=== PATIENT | female | born 1980 | race Caucasian/White ===

== ENCOUNTER 2025-05-01 08:01 | Emergency (ER) | payer OTHER, SELFPAY ==
[2025-05-01] VITALS (7 sets, daily range): BP systolic 126–130; BP diastolic 85–90; PULSE 74–84; RESP 12–18; TEMP 37; O2SAT 100
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
--- OUTSIDE RECORDS SUMMARY | 2025-05-01 08:13 | XMS_ITS | Encounter Summary ---
Author Organization [facility] Address [address] [place] [address] Care Team Providers Care Motor Coach Operator Name Role Phone Joe Reza MD Primary Care Provider [phone] Encounter Details Date Type Department Care Team (Late st Contact Info) Description 03/19/2020 Lab Requisition [facility] [address] [place] [id number] Herminia Graham MD [address] [facility] [address] [place] [address] Social History Tobacco Use Types Packs/Day Years Used Date Smoking Tobacco: Never Assessed Comments Unknown Sex and Gender Information Value Date Recorded Sex Assigned at Not on file 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 Gender Identity Not on file Sexual Orientation Not on file documented as of this encounter Plan of Treatment Not on file documented as of this encounter Procedures Procedure Name Priority Date/Time Associated Diagnosis Comments DERMATOPATHOLOGY Routine 03/18/2020 12:0 0 AM CDT documented in this encounter Results * DERMATOPATHOLOGY (03/18/2020 12:00 AM CDT) Case Report Dermatopathology Report Case: [id number] Authorizing Provider: Herminia Graham MD Collected: 03/18/2020 12:00 AM Ordering Location: [facility] Care DermPath Lab Received: 03/19/2020 03:02 PM Pathologist: Janelle Escobar MD Specimen: Skin, right eyelid 0 3:02 PM CDT DERMATOPATHOLOGY LABORATORY Final Diagnosis Specimen A. SKIN, right eyelid: BASAL CELL CARCINOMA, NODULAR TYPE (C44.1121) 0 3:02 PM CDT DERMATOPATHOLOGY LABORATORY at 1502 CDT Clinical History R/O angiokeratoma vs BCC 0 3:02 PM CDT DERMATOPATHOLOGY LABORATORY Gross Description Specimen A: Received is one formalin filled container labeled with the patient's name and designated right eyelid. The specimen consists of a shave biopsy measuring 5x4x3 mm. Jar 0. 0 3:02 PM CDT DERMATOPATHOLOGY LABORATORY Microscopic Description Specimen A. SKIN, right eyelid: Within the dermis there are aggregates of basaloid cells with a high nuclear to cytoplasmic ratio and peripheral palisading. 0 3:02 PM CDT DERMATOPATHOLOGY LABORATORY Disclaimer An external and internal positive and negative controls are appropriate for the histochemical, immunohistochemical and immunofluorescence stain(s) in this case (if any), except where stated explicitly. The performance characteristics of the stain(s) cited in this report were developed and its performance characteristic determined by the Dermatopathology Laboratory at [facility], directed by Dr. Angelica Ann. These tests need not be, and therefore are not, approved by the [place] Food and Drug Administration. The tests are used for clinical purposes. Billing Codes Specimen Charges Stain Charges 98051 1 0 3:02 PM CDT DERMATOPATHOLOGY LABORATORY Embedded Images 0 3:02 PM CDT DERMATOPATHOLOGY LABORATORY Pathology/Cytolog y TISSUE SPECIMEN FROM SKIN / Unknown 03/18/2020 03/19/2020 3:02 PM CDT us Herminia Graham MD LAB - PATHOLOGY/CYTOLOGY ORD ERABLES Final Result DERMATOPATHOLOGY LABORATORY [facility] - Department of Dermatology [facility] [address] [place] [address], [address] [place] [address], [facility] [phone] documented in this encounter Visit Diagnoses Not on filedocumented in this encounter Care Teams Motor Coach Operator Relationship Specialty Start Date End Date Joe Reza MD [address] [place] [id number] PCP - General 02/13/11 documented as of this encounter
--- OUTSIDE RECORDS SUMMARY | 2025-05-01 08:13 | XMS_ITS | Clinical Summary ---
Author Organization [facility] Address [address] [place] [address] Care Team Providers Care Repairer Welding Systems [employer] Equipment Name Role Phone Joe Reza MD Primary Care Provider [phone] Source Comments [facility],non-owned Affiliates and Associated Physician Practices is amultiple site organization consisting of ambulatory clinics and hospital sitesin [place], [place], [place] and [place]. This disclosure is being madepursuant to the Care Everywhere program and may not contain all information available regarding this patient. Last updated 18.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 Gender Identity Not on file Sexual Orientation Not on file Plan of Treatment Health Maintenance Due Date Last Done Comments COLOGUARD (AGES 45-75) - COL ON CA SCREENING 1978 COLON MONITORING 1978 COLONOSCOPY - COLON CA SCREENING 1978 CT COLONOGRAPHY - COLON CA SCREENING 1978 Colorectal Cancer Screening 1978 FIT - COLON CA SCREENING 1978 FLEX SIG - COLON CA SCREENING 1978 LIPID TESTING 1978 MAMMOGRAM 1978 HIV SCREENING 1993 HEPATITIS C SCREENING 04/20/1996 DTAP/TDAP/TD VACCINES (1 - Tdap) 1997 HEPATITIS B VACCINE (1 of 3 - 19+ 3-dose series) 1997 DEPRESSION SCREENING 07/19/2024 COVID-19 VACCINE (2023-2 5 season) 2025 INFLUENZA VACCINE (#1) 2025 ZOSTER VACCINE (1 of 2) 2028 HIB VACCINE Aged Out No longer eligi ble based on patient's age to complete this topic HPV VACCINE Aged Out No longer eligi ble based on patient's age to complete this topic MENINGOCOCCAL (Group B) VACC INE SHARED DECISION-MAKING Aged Out No longer eligibl e based on patient's age to complete this topic MENINGOCOCCAL GROUPS A/C/Y/W VACCINE Aged Out No longer eligible b ased on patient's age to complete this topic PNEUMOCOCCAL VACCINE Aged Out No long er eligible based on patient's age to complete this topic Insurance Care Teams Repairer Welding Systems [employer] Equipment Relationship Specialty Start Date End Date Joe Reza MD [address] [place] [address] PCP - General 02/13/11
--- OUTSIDE RECORDS SUMMARY | 2025-05-01 08:13 | XMS_ITS | Clinical Summary ---
Author Organization [facility] Address [address] [place] [address] Care Team Providers Care Photovoltaic Technician Name Role Phone No, Physician Unavailable Luís Butler DO Primary Care Provider [phone] Allergies Active Allergy Reactions Criticality Noted Date Comments Codeine Hives,Nausea & Vomiting Medium Erythromycin Nausea & Vomiting Low Hydrocodone Hives Medium 02/25/2022 Medications albuterol HFA (PROVENTIL HFA,VENTOLIN HFA) 90 mcg/actuation inhaler inhale 2 puff by inhalation route every 4 - 6 hours as needed 0 03/17/20 11 Active Additional Information Patient taking differently:90 mcginhalation As needed, Indications: Acute Asthma Attack, Informant: Self, Reported on 04/19/2025 cetirizine (ZyrTEC) 10 mg tablet Take 10 mg by mouth daily As needed for allergies Active cholecalcifero l (VITAMIN D-3) 5,000 unit capsule Take 5,000 Units by mouth daily Active ocrelizumab, OCREVUS ZUNOVO, (Ocrevus Zunovo) 920 mg-23,000 unit/23 mL solutionIndica tions:relapsin g form of multiple sclerosis Inject 23 mL (920 mg total) under the skin every 6 (six) months for 10 minutes SUBQ in the abdomen; Observe patient for 15 minutes post injection for all subsequent doses; HOME INFUSION 23 mL 12/27/19 25 Active methocarbamoL (ROBAXIN) 750 mg tablet Take 1 tablet (750 mg total) by mouth 3 (three) times a day as needed for muscle spasms 20 tablet 04/12/20 25 Active Eliquis 5 mg tabletIndicati ons:Multiple sclerosis,Immu nosuppression due to drug therapy,High risk medication use,Medication monitoring encounter,Abno rmal MRI,Other fatigue,Dysest hesia of multiple sites Take 1 tablet (5 mg total) by mouth 2 (two) times a day 60 tablet 04/19/20 25 025 Active Eliquis 5 mg tablet 1 tablet (5 mg total) 04/10/20 25 025 Discontin ued(Reord er) Active Problems Problem Noted Date Diagnosed Date Immunosuppression due to drug therapy 04/15/2025 High risk medication use 04/15/2025 Medication monitoring encounter 04/15/2025 Abnormal MRI 04/15/2025 Dysesthesia of multiple sites 04/15/2025 Basal cell carcinoma of right lower eyelid 04/04 Overview (04/04/2020): Added automatically from request for surgery [id number] Other fatigue 01/03/2020 Muscle spasm of left lower extremity 01/03/2020 Paresthesias 01/03/2020 Mild intermittent asthma without complication Multiple sclerosis 12/02/2013 Overview (10/23/2016): Multiple sclerosis, relapsing-remitting Encounters Date Type Department Care Team Description 04/19/2025 4:15 PM CDT Lab [facility] ([facility]) [address] [place] [address] Multiple sclerosis; Immunosuppression due to drug therapy; High risk medication use; Medication monitoring encounter; Abnormal MRI; Other fatigue; Dysesthesia of multiple sites 04/19/2025 2:30 PM CDT Office Visit [facility] Multiple Sclerosis [facility] Medicine [address]th [place] [address] Carol Hendricks, FIRST MATE Multiple sclerosis (Primary Dx); Immunosuppression due to drug therapy; High risk medication use; Medication monitoring encounter; Abnormal MRI; Other fatigue; Dysesthesia of multiple sites 04/19/2025 Results Follow-Up [facility] Multiple Sclerosis [address] [facility] 7th [place] [address] Carol Hendricks, FIRST MATE Immune competence 04/12/2025 7:30 PM CDT - 04/13/2025 1:58 AM CDT Emergency [facility] Emergency Department [address] [facility] [place] [address] Sanya Ortez MD PhD Left leg pain (Primary Dx) Discharge Disposition: Discharge to home or self care from Last 3 Months Immunizations Immunization Administration Dates Next Due Influenza, Quadrivalent, Renetta l Culture-based MDCK, Preservative Free, Antibiotic Free, Intramuscular 05/12/2018 Influenza, Quadrivalent, Rec ombinant, Egg Free, Preservative Free, Intramuscular 04/18/2020 Influenza, Quadrivalent, Spl it, Preservative Free, Intramuscular 04/08/2017 Influenza, Split 03/19/2017 Moderna SARS-CoV-2 Monovalent Vaccination (12+ Y RS) 11/14/2021 Pneumococcal Polysaccharide PPV23 04/18/2020 Tdap 07/12/2015 Surgical History Surgery Date Site/Laterality Comments TONSILLECTOMY COLONOSCOPY Medical History Medical History Date Comments Hx Other Medical tonsillectomy Asthma Asthma Hx Other Medical Vit D deficienc y Hx Other Medical Concussion; Com ments: MJT 09/12/2014 - Basal cell carcinoma (BCC) Multiple sclerosis Motion sickness Family History Medical History Relation Name Comments Transient ischemic attack Maternal Grandfather Multiple sclerosis Maternal Grandmother M ultiple sclerosis; Evidently, due to complications from MS Multiple sclerosis Mother Multiple sclerosis; Relation Name Status Comments Maternal Grandfather Maternal Grandmother Alive Mother Social History Tobacco Use Types Packs/Day Years Used Date Smoking Tobacco: Never Smokeless Tobacco: Never Alcohol Use Standard Drinks/Week Comments Yes 2 (1 standard drink = 0.6 oz pur e alcohol) Personal Safety Answer Date Recorded Have you ever been in or are you currently in a harmful physical or emotional relationship or is someone making you feel afraid or unsafe? 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 Gender Identity Not on file Sexual Orientation Lesbian 04/02/2020 8: 04 AM CDT Obstetrics History Last Filed Vital Signs Vital Sign Reading Time Taken Comments Blood Pressure 123/84 04/19/2025 2:15 PM CDT Pulse 89 04/19/2025 2:15 PM CDT Temperature 36.9 C (98.5 F) 04/12/2025 2:59 PM CDT Respiratory Rate 18 04/12/2025 11:1 0 PM CDT Oxygen Saturation 96% 04/19/2025 2:15 PM CDT Inhaled Oxygen Concentration - - Weight 123.2 kg (271 lb 9.6 oz) 04/19/2025 2:15 PM CDT Height 165.1 cm (5' 5) 04/19/2025 2:15 PM CDT Body Mass Index 45.2 04/19/2025 2:15 PM CDT Plan of Treatment Health Maintenance Due Date Last Done Comments Breast Cancer Screening-Mammogram 1978 Cervical Cancer Screening 1978 Colon Cancer Screening-Colonoscopy 1978 Depression Screening 1978 Regular Well Visit/Exam 18-64 1996 Zoster Vaccine (1 of 2) 1997 Pneumococcal vaccine <65 (2 of 2 - PCV) 04/18/2021 04/18/2020 Covid-19 Vaccine (6 - 2024-2 6 season) 2025 06/04/2023, 11/14/2021, 03/14/2021, Additional history exists Influenza Vaccine (#1) 2025 , 04/18/2020, 05/12/2018, Additional history exists DTaP/Tdap/Td Vaccine (2 - Td or Tdap) 07/12/2025 07/12/2015 Hepatitis B Screening Completed 01/03/2020 Hepatitis C Screening Completed 01/03/2020 Procedures Procedure Name Priority Date/Time Associated Diagnosis Comments IMMUNE COMPETENCE Routine 04/19/2025 3:2 5 PM CDT Multiple sclerosis Immunosuppression due to drug therapy High risk medication use Medication monitoring encounter Abnormal MRI Other fatigue Dysesthesia of multiple sites IGG Routine 04/19/2025 3:25 PM CDT Multiple sclerosis Immunosuppression due to drug therapy High risk medication use Medication monitoring encounter Abnormal MRI Other fatigue Dysesthesia of multiple sites IGA Routine 04/19/2025 3:25 PM CDT Multiple sclerosis Immunosuppression due to drug therapy High risk medication use Medication monitoring encounter Abnormal MRI Other fatigue Dysesthesia of multiple sites IGM Routine 04/19/2025 3:25 PM CDT Multiple sclerosis Immunosuppression due to drug therapy High risk medication use Medication monitoring encounter Abnormal MRI Other fatigue Dysesthesia of multiple sites APTT STAT 04/12/2025 8:37 PM CDT PROTIME-INR STAT 04/12/2025 8:37 PM CDT TROPONIN I HIGH-SENSITIVITY 4-HOUR Timed 04/12/2025 8:37 PM CDT EGFR STAT 04/12/2025 4:16 PM CDT DIFFERENTIAL AUTO Routine 04/12/2025 4:1 6 PM CDT TROPONIN I HIGH-SENSITIVITY SERIES (BASELINE, 2HR, 4HR, 6HR) STAT 04/12/2025 4:16 PM CDT COMPREHENSIVE METABOLIC PANEL STAT 04/12/2025 4:16 PM CDT D-DIMER, QUANTITATIVE STAT 04/12/2025 4:16 PM CDT CBC WITH AUTO DIFFERENTIAL Routine 04/12/2025 4:16 PM CDT HEPATITIS PANEL, ACUTE Routine 0 9:00 AM CDT from Last 3 Months or Most Recently Relevant to Health Maintenance Results * (ABNORMAL) Immune competence (04/19/2025 3:25 PM CDT) CD3 pct 90(H) 60 - 88 % CD3 Absolute 1,668 661 - 1,963 cells/mcL [facility] CD4 pct 78(H) 31 - 64 % [facility] CD4 Absolute 1,474(H) 365 - 1,294 cells/mcL [facility] CD8 pct 14 12 - 40 % [facility] CD8 Absolute 273 187 - 781 cells/mcL [facility] CD19 pct 0(L) 6 - 25 % [facility] CD19 Absolute <25(L) 86 - 488 cells/mcL [facility] Comment:Verified [id number] pct 9 5 - 25 % [facility] [id number] Absolute 154 76 - 467 cells/mcL [facility] CD4/CD8 ratio 5.6 [facility] Blood 04/19/2025 3:25 PM CDT 04/19/2025 4:14 PM CDT Carol Hendricks FIRST MATE LAB BLOOD ORDERABLES Final Res ult Performing Organization Address [facility] Co de Phone Number [facility] [email or web address] [address] * IgA (04/19/2025 3:25 PM CDT) Immunoglobulin A 194 70 - 400 mg/dL Blood 04/19/2025 3:25 PM CDT 04/19/2025 4:14 PM CDT Carol Hendricks FIRST MATE LAB BLOOD ORDERABLES Final Res ult Performing Organization Address [facility] Co de Phone Number [facility] [email or web address] [address] * IgM (04/19/2025 3:25 PM CDT) Immunoglobulin M 45 40 - 230 mg/dL Blood 04/19/2025 3:25 PM CDT 04/19/2025 4:14 PM CDT Carol Hendricks FIRST MATE LAB BLOOD ORDERABLES Final Res ult Performing Organization Address City/[facility]/ZIP Co de Phone Number [facility] [place] [address] * IgG (04/19/2025 3:25 PM CDT) Pathologist [facility] Immunoglobulin G 734 700 - 1,600 mg/dL Blood 04/19/2025 3:25 PM CDT 04/19/2025 4:14 PM CDT Carol Hendricks FIRST MATE LAB BLOOD ORDERABLES Final Res ult Performing Organization Address [facility] Co de Phone Number [facility] [email or web address] [address] * Troponin I high-sensitivity 4-hour (04/12/2025 8:37 PM CDT) [facility] Trop I hs <4 <=17 ng/L Comment: Interpretive Data For further hscTnI resources including the diagnostic algorithm and an aid in interpretation, copy and paste this link: https://bjhlab.testcatalog.org/show/[email or web address] Current Interpretive Data last revised 2020. Trop I hs delta 0 ng/L [facility] Trop I hs interp Insignificant [facility] Blood 04/12/2025 8:37 PM CDT 04/12/2025 8:50 PM CDT Rahul Barroso MD LAB BLOOD ORDERABLES Lina l Result Performing Organization Address [facility] de Phone Number [facility] [email or web address] [address] * aPTT (04/12/2025 8:37 PM CDT) Pathologist [facility] aPTT 31 26 - 38 sec Comment: Interpretive Data Heparin therapeutic range: 66.0 - 100.0 seconds. Range based on correlation with therapeutic heparin activity range of 0.3 - 0.7 Units/mL. Current interpretive data was last revised on 2023. Blood 04/12/2025 8:37 PM CDT 04/12/2025 8:53 PM CDT Jackie Mondragon MD LAB BLOOD ORDERABLES Fin al Result Performing Organization Address [facility] de Phone Number [facility] [place] [address] * Protime-INR (04/12/2025 8:37 PM CDT) PT 13.5 10.2 - 13.5 sec INR 1.20 0.90 - 1.20 [facility] Comment: Interpretive data Oral anticoagulant therapeutic ranges: Venous thromboembolism prophylaxis or treatment: 2.0-3.0 CARDIOLOGY Standard range: 2.0-3.0 High-intensity range: 2.5-3.5 Refer to indication-specific guidelines for appropriate target ranges for prosthetic heart valve replacement. Current interpretive data was last revised on 2019. Blood 04/12/2025 8:37 PM CDT 04/12/2025 8:53 PM CDT Jackie Mondragon MD LAB BLOOD ORDERABLES Fin al Result Performing Organization Address [facility] de Phone Number [facility] [place] [address] * Troponin I high-sensitivity series (baseline, 2hr, 4hr, 6hr) (04/12/2025 4:16 PM CDT) Trop I hs <4 <=17 ng/L Comment: Interpretive Data For further hscTnI resources including the diagnostic algorithm and an aid in interpretation, copy and paste this link: https://bjhlab.testcatalog.org/show/hsTrop-[email or web address] Current Interpretive Data last revised 2020. Blood 04/12/2025 4:16 PM CDT 04/12/2025 4:55 PM CDT us Sanya Ortez MD PhD LAB BLOOD ORDERABLE S Final Result Performing Organization Address [facility] de Phone Number [facility] Department [place] [address] * eGFR (04/12/2025 4:16 PM CDT) Pathologist [facility] eGFR >90 >=60 mL/min/1. 73 m2 Comment: Interpretive Data Reference Interval Normal >/= 90 mL/min/1.73m2 Mildly decreased* 60 - 89 mL/min/1.73m2 Mildly to moderately decreased 45 - 59 mL/min/1.73m2 Moderately to severely decreased 30 - 44 mL/min/1.73m2 Severely decreased 15 - 29 mL/min/1.73m2 Kidney Failure < 15 mL/min/1.73m2 *Relative to young adult level Estimated glomerular filtration rate is determined by the 2020 CKD-EPI equation recommended by the National Kidney Foundation (A Unifying Approach to GFR Estimation: Recommendations of the NKF-ASK Task Force on Reassessing the Inclusion of Race in Diagnosing Kidney Disease, JASN 2020). The CKD-EPI equation should not be used for patients with unstable renal function and has not been validated in children and those over 70. Current interpretive data was last reviewed 2021. Blood 04/12/2025 4:16 PM CDT 04/12/2025 4:55 PM CDT us Sanya Ortez MD PhD LAB BLOOD ORDERABLE S Final Result [facility] B[facility] Department [place] [address] * (ABNORMAL) Differential, auto (04/12/2025 4:16 PM CDT) Pathologist [facility] Neutrophil abs 6.82(H) 1.50 - 6.50 K/cumm Imm gran abs 0.03 0.00 - 0.10 K/cumm [facility] Lymphocyte abs 2.27 0.80 - 3.30 K/cumm [facility] Monocyte abs 0.89(H) 0.20 - 0.80 K/cumm [facility] Eosinophil abs 0.16 0.00 - 0.50 K/cumm [facility] Basophil abs 0.06 0.00 - 0.10 K/cumm [facility] Neutrophil pct 66.6 % [facility] Comment: Interpretive Data Percent cell count reference ranges are not reported, since discordance with absolute values may lead to misinterpretation of CBC data. Current Interpretive Data was last revised on 2017. Imm gran pct 0.3 % [facility] Comment: Interpretive Data Percent cell count reference ranges are not reported, since discordance with absolute values may lead to misinterpretation of CBC data. Current Interpretive Data was last revised on 2017. Lymphocyte pct 22.2 % [facility] Comment: Interpretive Data Percent cell count reference ranges are not reported, since discordance with absolute values may lead to misinterpretation of CBC data. Current Interpretive Data was last revised on 2017. Monocyte pct 8.7 % [facility] Comment: Interpretive Data Percent cell count reference ranges are not reported, since discordance with absolute values may lead to misinterpretation of CBC data. Current Interpretive Data was last revised on 2017. Eosinophil pct 1.6 % [facility] Comment: Interpretive Data Percent cell count reference ranges are not reported, since discordance with absolute values may lead to misinterpretation of CBC data. Current Interpretive Data was last revised on 2017. Basophil pct 0.6 % [facility] Comment: Interpretive Data Percent cell count reference ranges are not reported, since discordance with absolute values may lead to misinterpretation of CBC data. Current Interpretive Data was last revised on 2017. Blood 04/12/2025 4:16 PM CDT 04/12/2025 4:55 PM CDT us Sanya Ortez MD PhD LAB BLOOD ORDERABLE S Final Result SAMMY BLEVINS [facility] Department [place] [address] * (ABNORMAL) CBC with auto differential (04/12/2025 4:16 PM CDT) WBC 10.23(H) 3.80 - 9.90 K/cumm Hgb 12.5 11.9 - 15.5 g/dL [facility] Hct 39.5 35.6 - 45.5 % [facility] Plt 362 150 - 400 K/cumm [facility] MPV 9.8 9.1 - 12.3 fL [facility] RBC 3.97 3.90 - 5.20 M/cumm [facility] MCV 99.5(H) 81.3 - 96.4 fL [facility] MCH 31.5 27.1 - 33.3 pg [facility] MCHC 31.6(L) 32.3 - 35.7 g/dL [facility] RDW CV 13.0 11.1 - 14.9 % [facility] RDW SD 47.4 35.7 - 48.1 fL [facility] NRBC abs 0.00 0.00 - 0.01 K/cumm [facility] Blood 04/12/2025 4:16 PM CDT 04/12/2025 4:55 PM CDT us Sanya Ortez MD PhD LAB BLOOD ORDERABLE S Final Result [facility] Department [place] [address] * (ABNORMAL) D-dimer, quantitative (04/12/2025 4:16 PM CDT) D-Dimer 1,149(H) <=499 ng/mL FEU Comment: Interpretive data FDA approved the D-dimer, in conjunction with a low or moderate pretest probability score, to exclude venous thromboembolic events (VTE) (PE and DVT) in outpatients when the D-dimer result is < 500 ng/ml FEU. Evidence supports using an age-adjusted D-dimer cut-off for outpatients older than 50 (age x 10) to improve specificity without sacrificing sensitivity. Example: age 68, VTE cut-off 680 ng/ml FEU. References; Rima HT et al. Brit Med J. 2013;346:f2492. Leatha et al. Annals Int Med. 2015;163:701-11. Current interpretive data was last revised on 2019. Blood 04/12/2025 4:16 PM CDT 04/12/2025 4:57 PM CDT us Sanya Ortez MD PhD LAB BLOOD ORDERABLE S Final Result [facility] Department [place] [address] * Comprehensive metabolic panel (04/12/2025 4:16 PM CDT) Sodium 141 135 - 145 mmol/L Potassium, pl 4.5 3.3 - 4.9 mmol/L [facility] Chloride 108 97 - 110 mmol/L [facility] CO2 23 22 - 32 mmol/L [facility] Anion gap 10 2 - 15 mmol/L [facility] BUN 8 6 - 25 mg/dL [facility] Creatinine 0.72 0.60 - 1.10 mg/dL [facility] Glucose 85 70 - 199 mg/dL [facility] Comment: Interpretive Data Fasting glucose >/= 126 mg/dl is diagnostic for diabetes. Fasting is defined as no caloric intake for at least 8 hours. Fasting glucose between 100 mg/dl to 125 mg/dl is diagnostic of prediabetes. In a patient with classic symptoms of hyperglycemia or hyperglycemic crisis, a random glucose >/= 200 mg/dl is diagnostic for diabetes. In the absence of unequivocal hyperglycemia, results should be confirmed by repeat testing. The classification and Diagnosis of Diabetes Diabetes Care 202; 46: S19-S40. Current interpretive data was last revised 2022. Calcium 8.7 8.5 - 10.3 mg/dL [facility] Bilirubin, total 0.2 0.1 - 1.2 mg/dL [facility] Protein, pl 6.7 6.5 - 8.5 g/dL [facility] Albumin 3.6 3.5 - 5.0 g/dL [facility] Alk phos 68 40 - 130 Units/L [facility] ALT 26 7 - 45 Units/L [facility] AST 25 10 - 45 Units/L [facility] Blood 04/12/2025 4:16 PM CDT 04/12/2025 4:55 PM CDT us Sanya Ortez MD PhD LAB BLOOD ORDERABLE S Final Result Performing Organization Address [facility] Co de Phone Number [facility] Department [place] [address] * Hepatitis panel, acute (01/03/2020 9:00 AM CDT) Hep A IgM Nonreactive Nonreactive [facility] Comment: Interpretive Data: If Hep A IgM Ab is reported as Equivocal, a new sample should be drawn in two weeks for testing. Current interpretive data was last revised on 19. Hep B core IgM Nonreactive Nonreactive [facility] Comment: Interpretive Data If HepB Core IgM Ab is reported as Equivocal, a new sample should be drawn in two weeks for testing. Current interpretive data was last revised on 19. Hep C Ab Nonreactive Nonreactive [facility] Comment:Antibodies to HCV no t detected. Does NOT exclude the possibility of recent exposure to HCV. HepBsAg Nonreactive Nonreactive [facility] Blood specimen (specimen) 01/03/2020 9:00 AM CDT 01/03/2020 10:39 AM CDT us Dominik Loza MD LAB MICROBIOLOGY - GENERAL ORDERABLES Edited Result - Final Performing Organization Address [facility] Co de Phone Number [facility] Department [place] [address] from Last 3 Months or Most Recently Relevant to Health Maintenance Insurance [employer] ACCESS CHOICE Member Subscriber Plan / Payer (Ef fective 2016-Present) Name:Bryce Wong Relation to Subscriber:Self Name:DamirsaschaMatiasBryce R Payer ID:[id number] ([facility]) Type:[employer] Address: [address] CHOICE PLUS [employer] ACCESS OOS Care Teams Photovoltaic Technician Relationship Specialty Start Date End Date Luís Butler DO [address] [facility] [address] [place] [address] PCP - General Family Medicine 04/19/25 No, Physician 04/24/24
--- OUTSIDE RECORDS SUMMARY | 2025-05-01 08:13 | XMS_ITS ---
Author Organization [facility] Address [address] [place] [address] Care Team Providers Care Managing Consultant Clinical Professor Name Role Phone No, Physician Unavailable Luís Butler DO Primary Care Provider [phone] Active Problems Problem Noted Date Diagnosed Date Immunosuppression due to drug therapy 04/15/2025 High risk medication use 04/15/2025 Medication monitoring encounter 04/15/2025 Abnormal MRI 04/15/2025 Dysesthesia of multiple sites 04/15/2025 Basal cell carcinoma of right lower eyelid 04/04 Overview (04/04/2020): Added automatically from request for surgery [id number] Other fatigue 01/03/2020 Muscle spasm of left lower extremity 01/03/2020 Paresthesias 01/03/2020 Mild intermittent asthma without complication Multiple sclerosis 12/02/2013 Overview (10/23/2016): Multiple sclerosis, relapsing-remitting Current Treatment and Therapy Plans No current plan information found. Past Treatment and Therapy Plans
--- OUTSIDE RECORDS SUMMARY | 2025-05-01 08:13 | XMS_ITS | Encounter Summary ---
Author Organization [facility] Healthcare Address [address] [place] [address] Care Team Providers Care Director Of Personnel Name Role Phone No, Physician Primary Care Provider Unknown, Notinfile Primary Care Provider Unavail able No, Physician Unavailable Luís Butler DO Primary Care Provider [phone] Encounter Details Date Type Department Care Team (Late st Contact Info) Description 07/03/2020 Telephone [facility] Radiology [address] [place] [address] Dominik Loza MD [address] [address] [place] [address] Social History Tobacco Use Types Packs/Day Years Used Date Smoking Tobacco: Never Smokeless Tobacco: Never Alcohol Use Standard Drinks/Week Comments Yes 2 (1 standard drink = 0.6 oz pur e alcohol) Comments No Sex and Gender Information Value Date Recorded Sex Assigned at Not on file 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
--- OUTSIDE RECORDS SUMMARY | 2025-05-01 08:13 | XMS_ITS | Encounter Summary ---
Author Organization [facility] Address [address] [place] [address] Phone Care Team Providers Care Body Repairer Name Role Phone No, Physician Unavailable Luís Butler DO Primary Care Provider [phone] Encounter Details Date Type Department Care Team (Late st Contact Info) Description 04/19/2025 Results Follow-Up [facility] Multiple Sclerosis [address] [facility] Advanced Medicine 7th [place] [address] Carol Hendricks, SECURITY AND COMPLIANCE ANALYST [address] [place] [address] Immune competence Social History Tobacco Use Types Packs/Day Years [...] on file 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
--- OUTSIDE RECORDS SUMMARY | 2025-05-01 08:14 | XMS_ITS | Encounter Summary ---
Author Organization [facility] Address [address] [place] [address] Phone Care Team Providers Care Ict Quality Assurance Engineer Name Role Phone No, Physician Primary Care Provider [phone] Unknown, Notinfile Primary Care Provider Unavail able No, Physician Unavailable Luís Butler DO Primary Care Provider [phone] Reason for Referral * Diagnostic Imaging (Routine) - Closed Specialty Diagnoses / Procedures Referred By Contac t Referred To Contact Radiology Diagnoses MS (multiple sclerosis) Procedures MRI Cervical Spine W WO Contrast Dominik Loza MD [address] [place] [address] Phone: tel: fax: [facility] [address] [place] [address] Referral ID Status Reason Start Date Expiration Date Visits Re quested Visits Authorized [id number] Closed 06/21/2020 08/05/2020 1 1 * Diagnostic Imaging (Routine) - Closed Specialty Diagnoses / Procedures Referred By Contjose celaya Referred To Contact Radiology Diagnoses MS (multiple sclerosis) Procedures MRI MS Brain 3T Protocol W WO Contrast Dominik Loza MD [address] [place] [address] Phone: tel: fax: [facility] [address] [place] [address] Referral ID Status Reason Start Date Expiration Date Visits Re quested Visits Authorized [id number] Closed 06/21/2020 08/05/2020 1 1 Encounter Details Date Type Department Care Team (Late st Contact Info) Description 05/01/2020 Imaging Exam [facility] Multiple Sclerosis [address] [place] [id number] Dominik Loza MD [address] [facility] [address] [place] [address] MS (multiple sclerosis) ([facility]) (Primary Dx) Social History Tobacco Use Types Packs/Day Years Used Date Smoking Tobacco: Never Smokeless Tobacco: Never Alcohol Use Standard Drinks/Week Comments Yes 2 (1 standard drink = 0.6 oz pur e alcohol) Comments No Sex and Gender Information Value Date Recorded Sex Assigned at Not on file Legal Sex Female 11:53 AM MONKEY KEEPER Gender Identity Not on file Sexual Orientation Lesbian 04/02/2020 8: 04 AM CDT documented as of this encounter Plan of Treatment Not on file documented as of this encounter Results * MRI Cervical Spine W WO Contrast (07/04/2020 4:15 PM MONKEY KEEPER) Anatomical Region Laterality Modality Spine N/A Magnetic Resonan ce 07/04/2020 5:21 PM MONKEY KEEPER Impressions 07/04/2020 5:21 PM MONKEY KEEPER Multiple intracranial and spinal white matter lesions compatible with multiple sclerosis. New T2 Lesions: 4 brain lesions Enhancing Lesions: None Other significant findings: None Electronically signed by: Neno Sumner M.D. Narrative 07/04/2020 5:21 PM MONKEY KEEPER EXAMINATION: Magnetic resonance imaging (MRI) of the brain and brainstem without and with contrast Magnetic resonance imaging (MRI) of the cervical spine without and with contrast HISTORY: Multiple sclerosis. TECHNIQUE: Multiplanar multi-weighted MRI of the brain, brainstem, and cervical spine was performed without and with intravenous contrast using the multiple sclerosis protocol. Scanner: [facility] Field Strength: 3 T Contrast: Dotarem Contrast dose: 20 mL The post-contrast scan was performed approximately 5 minutes after IV contrast administration. COMPARISON: MRI brain dated 11/18/2016 FINDINGS: BRAIN: There are multiple foci of hyperintensity on FLAIR and T2-weighted images within the white matter compatible with demyelinating plaques of multiple sclerosis. This includes periventricular, callosal, cerebellar, cortical or juxtacortical, and brainstem lesions. New Brain T2 Lesions: 4, including lesions in left centrum semiovale, and right frontal periventricular white matter T1 Hypointense Black Holes: 5-10 Enhancing Brain Lesions: None T2/FLAIR [place] of Disease: Severe, more than 30 typical lesions or large confluent lesions Parenchymal Volume Loss: Mild. Other Significant Findings: None The visualized portions of the optic nerves are normal. The scalp and calvarium are normal. The superior sagittal sinus demonstrates normal venous flow. The craniocervical junction is unremarkable. The pituitary and sella are normal. Diffusion weighted images reveal no hyperintensities to suggest acute cerebral infarction. The susceptibility weighted sequences reveal no evidence of acute or chronic hemorrhage. The ventricles are normal in size and position. The paranasal sinuses are normal. The visualized portions of the mastoids are unremarkable. The orbits appear normal. Normal flow voids are demonstrated in the carotid arteries and basilar artery. CERVICAL SPINE: The spinal cord evaluation is slightly limited by motion artifacts but spinal cord otherwise demonstrates normal signal intensity on all sequences. New Spine T2 Lesions: 0 Enhancing Spine Lesions: 0 The alignment of the cervical spine is normal. Vertebral bodies demonstrate normal signal intensity on all sequences. No acute fracture is identified; however, if trauma is suspected, a CT scan would be a more sensitive examination for fractures. The craniocervical junction is normal. Intervertebral disks have normal height and signal intensity. There are no annular fissures identified. No soft tissue abnormality is identified. Normal signal voids are present in the vertebral arteries. Procedure Note Neno Sumner MD - 07/04/2020 EXAMINATION: Magnetic resonance imaging (MRI) of the brain and brainstem without and with contrast Magnetic resonance imaging (MRI) of the cervical spine without and with contrast HISTORY: Multiple sclerosis. TECHNIQUE: Multiplanar multi-weighted MRI of the brain, brainstem, and cervical spine was performed without and with intravenous contrast using the multiple sclerosis protocol. Scanner: [facility] Field Strength: 3 T Contrast: Dotarem Contrast dose: 20 mL The post-contrast scan was performed approximately 5 minutes after IV contrast administration. COMPARISON: MRI brain dated 11/18/2016 FINDINGS: BRAIN: There are multiple foci of hyperintensity on FLAIR and T2-weighted images within the white matter compatible with demyelinating plaques of multiple sclerosis. This includes periventricular, callosal, cerebellar, cortical or juxtacortical, and brainstem lesions. New Brain T2 Lesions: 4, including lesions in left centrum semiovale, and right frontal periventricular white matter T1 Hypointense Black Holes: 5-10 Enhancing Brain Lesions: None T2/FLAIR [place] of Disease: Severe, more than 30 typical lesions or large confluent lesions Parenchymal Volume Loss: Mild. Other Significant Findings: None The visualized portions of the optic nerves are normal. The scalp and calvarium are normal. The superior sagittal sinus demonstrates normal venous flow. The craniocervical junction is unremarkable. The pituitary and sella are normal. Diffusion weighted images reveal no hyperintensities to suggest acute cerebral infarction. The susceptibility weighted sequences reveal no evidence of acute or chronic hemorrhage. The ventricles are normal in size and position. The paranasal sinuses are normal. The visualized portions of the mastoids are unremarkable. The orbits appear normal. Normal flow voids are demonstrated in the carotid arteries and basilar artery. CERVICAL SPINE: The spinal cord evaluation is slightly limited by motion artifacts but spinal cord otherwise demonstrates normal signal intensity on all sequences. New Spine T2 Lesions: 0 Enhancing Spine Lesions: 0 The alignment of the cervical spine is normal. Vertebral bodies demonstrate normal signal intensity on all sequences. No acute fracture is identified; however, if trauma is suspected, a CT scan would be a more sensitive examination for fractures. The craniocervical junction is normal. Intervertebral disks have normal height and signal intensity. There are no annular fissures identified. No soft tissue abnormality is identified. Normal signal voids are present in the vertebral arteries. IMPRESSION: Multiple intracranial and spinal white matter lesions compatible with multiple sclerosis. New T2 Lesions: 4 brain lesions Enhancing Lesions: None Other significant findings: None Electronically signed by: Neno Sumner M.D. us Dominik Loza MD IMG MRI PROCEDURES Final R esult * MRI MS Brain 3T Protocol W WO Contrast (07/04/2020 4:15 PM MONKEY KEEPER) Anatomical Region Laterality Modality Head and Neck N/A Magnetic Resonan ce 07/04/2020 5:21 PM MONKEY KEEPER Impressions 07/04/2020 5:21 PM MONKEY KEEPER Multiple intracranial and spinal white matter lesions compatible with multiple sclerosis. New T2 Lesions: 4 brain lesions Enhancing Lesions: None Other significant findings: None Electronically signed by: Neno Sumner M.D. Narrative 07/04/2020 5:21 PM MONKEY KEEPER EXAMINATION: Magnetic resonance imaging (MRI) of the brain and brainstem without and with contrast Magnetic resonance imaging (MRI) of the cervical spine without and with contrast HISTORY: Multiple sclerosis. TECHNIQUE: Multiplanar multi-weighted MRI of the brain, brainstem, and cervical spine was performed without and with intravenous contrast using the multiple sclerosis protocol. Scanner: [facility] Field Strength: 3 T Contrast: Dotarem Contrast dose: 20 mL The post-contrast scan was performed approximately 5 minutes after IV contrast administration. COMPARISON: MRI brain dated 11/18/2016 FINDINGS: BRAIN: There are multiple foci of hyperintensity on FLAIR and T2-weighted images within the white matter compatible with demyelinating plaques of multiple sclerosis. This includes periventricular, callosal, cerebellar, cortical or juxtacortical, and brainstem lesions. New Brain T2 Lesions: 4, including lesions in left centrum semiovale, and right frontal periventricular white matter T1 Hypointense Black Holes: 5-10 Enhancing Brain Lesions: None T2/FLAIR [place] of Disease: Severe, more than 30 typical lesions or large confluent lesions Parenchymal Volume Loss: Mild. Other Significant Findings: None The visualized portions of the optic nerves are normal. The scalp and calvarium are normal. The superior sagittal sinus demonstrates normal venous flow. The craniocervical junction is unremarkable. The pituitary and sella are normal. Diffusion weighted images reveal no hyperintensities to suggest acute cerebral infarction. The susceptibility weighted sequences reveal no evidence of acute or chronic hemorrhage. The ventricles are normal in size and position. The paranasal sinuses are normal. The visualized portions of the mastoids are unremarkable. The orbits appear normal. Normal flow voids are demonstrated in the carotid arteries and basilar artery. CERVICAL SPINE: The spinal cord evaluation is slightly limited by motion artifacts but spinal cord otherwise demonstrates normal signal intensity on all sequences. New Spine T2 Lesions: 0 Enhancing Spine Lesions: 0 The alignment of the cervical spine is normal. Vertebral bodies demonstrate normal signal intensity on all sequences. No acute fracture is identified; however, if trauma is suspected, a CT scan would be a more sensitive examination for fractures. The craniocervical junction is normal. Intervertebral disks have normal height and signal intensity. There are no annular fissures identified. No soft tissue abnormality is identified. Normal signal voids are present in the vertebral arteries. Procedure Note Neno Sumner MD - 07/04/2020 EXAMINATION: Magnetic resonance imaging (MRI) of the brain and brainstem without and with contrast Magnetic resonance imaging (MRI) of the cervical spine without and with contrast HISTORY: Multiple sclerosis. TECHNIQUE: Multiplanar multi-weighted MRI of the brain, brainstem, and cervical spine was performed without and with intravenous contrast using the multiple sclerosis protocol. Scanner: [facility] Field Strength: 3 T Contrast: Dotarem Contrast dose: 20 mL The post-contrast scan was performed approximately 5 minutes after IV contrast administration. COMPARISON: MRI brain dated 11/18/2016 FINDINGS: BRAIN: There are multiple foci of hyperintensity on FLAIR and T2-weighted images within the white matter compatible with demyelinating plaques of multiple sclerosis. This includes periventricular, callosal, cerebellar, cortical or juxtacortical, and brainstem lesions. New Brain T2 Lesions: 4, including lesions in left centrum semiovale, and right frontal periventricular white matter T1 Hypointense Black Holes: 5-10 Enhancing Brain Lesions: None T2/FLAIR [place] of Disease: Severe, more than 30 typical lesions or large confluent lesions Parenchymal Volume Loss: Mild. Other Significant Findings: None The visualized portions of the optic nerves are normal. The scalp and calvarium are normal. The superior sagittal sinus demonstrates normal venous flow. The craniocervical junction is unremarkable. The pituitary and sella are normal. Diffusion weighted images reveal no hyperintensities to suggest acute cerebral infarction. The susceptibility weighted sequences reveal no evidence of acute or chronic hemorrhage. The ventricles are normal in size and position. The paranasal sinuses are normal. The visualized portions of the mastoids are unremarkable. The orbits appear normal. Normal flow voids are demonstrated in the carotid arteries and basilar artery. CERVICAL SPINE: The spinal cord evaluation is slightly limited by motion artifacts but spinal cord otherwise demonstrates normal signal intensity on all sequences. New Spine T2 Lesions: 0 Enhancing Spine Lesions: 0 The alignment of the cervical spine is normal. Vertebral bodies demonstrate normal signal intensity on all sequences. No acute fracture is identified; however, if trauma is suspected, a CT scan would be a more sensitive examination for fractures. The craniocervical junction is normal. Intervertebral disks have normal height and signal intensity. There are no annular fissures identified. No soft tissue abnormality is identified. Normal signal voids are present in the vertebral arteries. IMPRESSION: Multiple intracranial and spinal white matter lesions compatible with multiple sclerosis. New T2 Lesions: 4 brain lesions Enhancing Lesions: None Other significant findings: None Electronically signed by: Neno Sumner M.D. Dominik Loza MD IMG MRI PROCEDURES Final R esult documented in this encounter Visit Diagnoses Diagnosis MS (multiple sclerosis)- Primary Multiple sclerosis documented in this encounter Care Teams Ict Quality Assurance Engineer Relationship Specialty Start Date End Date Josette Physician PCP - General 08/02/19 04/23/24 Unknown, Notinfile PCP - General 04/24/24 04/18/25 Luís Butler DO [address] [address] PCP - General Family Medicine 04/19/25 Josette Physician 04/24/24 documented as of this encounter
--- OUTSIDE RECORDS SUMMARY | 2025-05-01 08:14 | XMS_ITS | Encounter Summary ---
Author Organization [facility] Address [address] [place] [address] Phone Care Team Providers Care Hyperbaric Welder Diver Name Role Phone No, Physician Primary Care Provider [phone] Unknown, Notinfile Primary Care Provider Unavail able No, Physician Unavailable Luís Butler DO Primary Care Provider [phone] Encounter Details Date Type Department Care Team (Latest Contact Info) Description 01/05/2022 Research Med Pick-Up/CTRU [facility] Multiple Sclerosis [address] [place] [id number] Dominik Loza MD [address] [place] [address] MS (multiple sclerosis) (HCC) (Primary Dx) Social History Tobacco Use Types Packs/Day Years Used Date Smoking Tobacco: Never Smokeless Tobacco: Never Alcohol Use Standard Drinks/Week Comments Yes 2 (1 standard drink = 0.6 oz pur e alcohol) Comments No Sex and Gender Information Value Date Recorded Sex Assigned at Not on file Legal Sex Female 11:53 AM CUSTOMER SOLUTIONS ARCHITECT Gender Identity Not on file Sexual Orientation Lesbian 04/02/2020 8: 04 AM CDT documented as of this encounter Plan of Treatment Not on file documented as of this encounter Visit Diagnoses Diagnosis MS (multiple sclerosis)- Primary Multiple sclerosis documented in this encounter Orders Medications Ordered That Osvaldo ht Not Have Been Administered Count Last Ordered Date First Ordered Date [facility] (2019-06-268/[id number] ) ocrelizumab 920 mg + [id number] 23,000 units subcutaneous solution 23 mL 1 12/31/2021 documented in this encounter Care Teams Hyperbaric Welder Diver Relationship Specialty Start Date End Date No, Physician PCP - General 08/02/19 04/23/24 Unknown, Notinfile PCP - General 04/24/24 04/18/25 Luís Butler DO [address] [facility] [address] [place] [address] PCP - General Family Medicine 04/19/25 No, Physician 04/24/24 documented as of this encounter
--- NOTE | 2025-05-01 11:20 | PC.NURSE ---
SANIA Antonio at bedside assessing pt.
--- NOTE | 2025-05-01 11:24 | ECG_ITS ---
Test Date: 2025-05-01 12:22:31 Measurements Intervals [place] Rate: 79 P: 53 MD: 173 QRS: 3 QRSD: 84 T: -5 QT: 376 QTc: 432 Interpretive Statements SINUS RHYTHM LOW QRS VOLTAGE IN PRECORDIAL LEADS BORDERLINE ST-T WAVE ABNORMALITY- INFERIOR LEADS BASELINE ARTIFACT- I, II, III, AVR, AVL, AVF, V1 BORDERLINE ECG No previous ECG available for comparison Electronically Signed On 05-01-2025 14:19:12 CDT by Edilberto Sibley D.O.
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
[2025-05-01 11:35] LABS: BEDSIDEPREGUCG Negative (Negative)
--- NOTE | 2025-05-01 12:05 | PC.NURSE ---
This RN attempted peripheral IV access x2 with no success. ADIEL Quispe to bedside to attempt.
[2025-05-01 12:10] LABS: Hematocrit 41.9 % (37.0-47.0); Hemoglobin 13.3 g/dL (12.0-15.0); Immature Granulocyte Percent A 0.4 % (0-0.5); Lymphocytes Absolute Auto 1.65 K/mm3 (0.9-3.2); Mean Corpuscular HGB Conc 31.7 g/dl (32-36); Mean Corpuscular Hemoglobin 31.7 pg (26-34); Mean Corpuscular Volume 100.0 fl (80-100); Nucleated Red Blood Cells Absolute Auto 0.000 K/mm3 (0.0-0.012); Nucleated Red Blood Cells Perc 0.0 % (0.0-0.2); Platelet Count Result 391 k/mm3 (150-375); Red Blood Count 4.19 M/mm3 (4.2-5.4); White Blood Count 13.3 K/mm3 (4.5-10.0)
[2025-05-01 12:47] LABS: Alanine Aminotransferase 20 U/L (6-35); Albumin Level 3.9 g/dL (3.5-5.1); Alkaline Phosphatase 66 U/L (38-126); Anion Gap 5 mmol/L (4-12); Aspartate Amino Transferase 21 U/L (14-36); Bilirubin,Total 0.6 mg/dL (0.2-1.3); Blood Urea Nitrogen 8 mg/dL (7-17); Calcium 8.7 mg/dL (8.4-10.2); Carbon Dioxide 25 mmol/L (22-30); Chloride 106 mmol/L (98-107); Estimated CRCL calculation 137 ml/min; Estimated Glomerular Filt Rate > 60; Glucose 102 mg/dL (65-110); Potassium 3.9 mmol/L (3.4-5.0); Sodium 136 mmol/L (137-145); Total Protein 6.7 g/dL (6.3-8.2)
[2025-05-01] MEDS: ONDANSETRON INJ 4 MG/2 ML VIAL IV PUSH (12:47)
[2025-05-01] MEDS: MORPHINE SULFATE (*CRX) 4 MG/ML INJ IV PUSH (12:51)
[2025-05-01 12:59] LABS: Troponin I < 0.012 ng/mL (0.000-0.034)
--- OUTSIDE RECORDS SUMMARY | 2025-05-01 13:50 | XMS_ITS | Encounter Summary ---
Author Organization [facility] Address [address] [place] [address] Phone Care Team Providers Care Mattress Packer Name Role Phone No, Physician Unavailable Luís Butler DO Primary Care Provider [phone] Encounter Details Date Type Department Care Team (Late st Contact Info) Description 04/19/2025 Results Follow-Up [facility] Multiple Sclerosis [address] [facility] Advanced Medicine [address]th [place] [address] Carol Hendricks, CIGARETTE FILTER INSPECTOR [address] [place] [address] Immune competence Social History Tobacco Use Types [...] on file Legal Sex Female 11:53 AM DIRECTOR OF BLOOD Gender Identity Not on file Sexual Orientation Lesbian 04/02/2020 8: 04 AM CDT documented as of this encounter Plan of Treatment Not on file documented as of this encounter Visit Diagnoses Not on filedocumented in this encounter Care Teams Mattress Packer Relationship Specialty Start Date End Date Luís Butler DO [address] [id number] PCP - General Family Medicine 04/19/25 No, Physician 04/24/24 documented as of this encounter
--- OUTSIDE RECORDS SUMMARY | 2025-05-01 13:50 | XMS_ITS | Clinical Summary ---
Author Organization [facility] Address [address] [place] [address] Care Team Providers Care Steel Pickler Name Role Phone Joe Reza MD Primary Care Provider [phone] Source Comments [facility],non-owned Affiliates and Associated Physician Practices is amultiple site organization consisting of ambulatory clinics and hospital sitesin [place], [place], [place] and [place]. This disclosure is being madepursuant to the Care Everywhere program and may not contain all information available regarding this patient. Last updated 18.[facility] Social History Tobacco Use Types Packs/Day Years Used Date Smoking Tobacco: Never Assessed Comments Unknown Sex and Gender Information Value Date Recorded Sex Assigned at Not on file Legal Sex Female 7:08 PM SPACE CONTROL AGENT Gender Identity Not on file Sexual Orientation [...] to complete this topic Insurance Care Teams Steel Pickler Relationship Specialty Start Date End Date Joe Reza MD [address] [place] [address] PCP - General 02/13/11
--- OUTSIDE RECORDS SUMMARY | 2025-05-01 13:50 | XMS_ITS ---
Author Organization 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 Past Treatment and Therapy Plans
--- OUTSIDE RECORDS SUMMARY | 2025-05-01 13:50 | XMS_ITS | Encounter Summary ---
Author Organization [facility] Address [address] [place] [address] Care Team Providers Care Water Quality Control Engineer Name Role Phone No, Physician Primary Care Provider Unknown, Notinfile Primary Care Provider Unavail able No, Physician Unavailable Luís Butler DO Primary Care Provider [phone] Encounter Details Date Type Department Care Team (Late st Contact Info) Description 07/03/2020 Telephone [facility] Radiology [address] [place] [address] Dominik Loza MD [address] [facility] [address] [place] [address] Social History Tobacco Use Types Packs/Day Years Used Date Smoking Tobacco: Never Smokeless Tobacco: Never Alcohol Use Standard Drinks/Week Comments Yes 2 (1 standard drink = 0.6 oz pur e alcohol) Comments No Sex and Gender Information Value Date Recorded Sex Assigned at Not on file Legal Sex Female 11:53 AM SCHEDULING REPRESENTATIVE Gender Identity Not on file Sexual Orientation Lesbian 04/02/2020 8: 04 AM CDT documented as of this encounter Plan of Treatment Not on file documented as of this encounter Visit Diagnoses Not on filedocumented in this encounter Care Teams Water Quality Control Engineer Relationship Specialty Start Date End Date No, Physician PCP - General 08/02/19 04/23/24 Unknown, Notinfile PCP - General 04/24/24 04/18/25 Luís Butler DO [address] [id number] PCP - General Family Medicine 04/19/25 No, Physician 04/24/24 documented as of this encounter
--- OUTSIDE RECORDS SUMMARY | 2025-05-01 13:50 | XMS_ITS | Encounter Summary ---
Author Organization [facility] Address [address] [place] [address] Phone Care Team Providers Care Crime Lab Analyst Name Role Phone No, Physician Primary Care Provider [phone] Unknown, Notinfile Primary Care Provider Unavail able No, Physician Unavailable Luís Butler DO Primary Care Provider [phone] Reason for Referral * Diagnostic Imaging (Routine) - Closed Specialty Diagnoses / Procedures Referred By Contac t Referred To Contact Radiology Diagnoses MS (multiple sclerosis) Procedures MRI Cervical Spine W WO Contrast Dominik Loza MD [address] [place] [address] Phone: tel: fax: [facility] [address] [place] [address] Referral ID Status Reason Start Date Expiration Date Visits Re quested Visits Authorized [id number] Closed 06/21/2020 08/05/2020 1 1 * Diagnostic Imaging (Routine) - Closed Specialty Diagnoses / Procedures Referred By Contjose celaya Referred To Contact Radiology Diagnoses MS (multiple sclerosis) Procedures MRI MS Brain 3T Protocol W WO Contrast Dominik Loza MD [address] [place] [address] Phone: tel: fax: [facility] [address] [facility] [place] [address] Referral ID Status Reason Start Date Expiration Date Visits Re quested Visits Authorized [id number] Closed 06/21/2020 08/05/2020 1 1 Encounter Details Date Type Department Care Team (Late st Contact Info) Description 05/01/2020 Imaging Exam [facility] Multiple Sclerosis [address] [place] [phone] Dominik Loza MD [address] [facility] [address] [place] [address] MS (multiple sclerosis) ([facility]) (Primary Dx) Social History Tobacco Use Types Packs/Day Years Used Date Smoking Tobacco: Never Smokeless Tobacco: Never Alcohol Use Standard Drinks/Week Comments Yes 2 (1 standard drink = 0.6 oz pur e alcohol) Comments No Sex and Gender Information Value Date Recorded Sex Assigned at Not on file Legal Sex Female 11:53 AM TANK TERMINAL GAUGER Gender Identity Not on file Sexual Orientation Lesbian 04/02/2020 8: 04 AM CDT documented as of this encounter Plan of Treatment Not on file documented as of this encounter Results * MRI Cervical Spine W WO Contrast (07/04/2020 4:15 PM TANK TERMINAL GAUGER) Anatomical Region Laterality Modality Spine N/A Magnetic Resonan ce 07/04/2020 5:21 PM TANK TERMINAL GAUGER Impressions 07/04/2020 5:21 PM TANK TERMINAL GAUGER Multiple intracranial and spinal white matter lesions compatible with multiple sclerosis. New T2 Lesions: 4 brain lesions Enhancing Lesions: None Other significant findings: None Electronically signed by: Neno Sumner M.D. Narrative 07/04/2020 5:21 PM TANK TERMINAL GAUGER EXAMINATION: Magnetic resonance imaging (MRI) of the brain and brainstem without and with contrast Magnetic resonance imaging (MRI) of the cervical spine without and with contrast HISTORY: Multiple sclerosis. TECHNIQUE: Multiplanar multi-weighted MRI of the brain, brainstem, and cervical spine was performed without and with intravenous contrast using the multiple sclerosis protocol. Scanner: [facility] Field Strength: 3 T Contrast: Dotarem Contrast [...] Holes: 5-10 Enhancing Brain Lesions: None T2/FLAIR Juliaetta of Disease: Severe, more than 30 typical [...] contrast using the multiple sclerosis protocol. Scanner: [facility] Field Strength: 3 T Contrast: Dotarem Contrast [...] Holes: 5-10 Enhancing Brain Lesions: None T2/FLAIR Juliaetta of Disease: Severe, more than 30 typical [...] Protocol W WO Contrast (07/04/2020 4:15 PM TANK TERMINAL GAUGER) Anatomical Region Laterality Modality Head and Neck N/A Magnetic Resonan ce 07/04/2020 5:21 PM TANK TERMINAL GAUGER Impressions 07/04/2020 5:21 PM TANK TERMINAL GAUGER Multiple intracranial and spinal white matter lesions compatible with multiple sclerosis. New T2 Lesions: 4 brain lesions Enhancing Lesions: None Other significant findings: None Electronically signed by: Neno Sumner M.D. Narrative 07/04/2020 5:21 PM TANK TERMINAL GAUGER EXAMINATION: Magnetic resonance imaging (MRI) of the brain and brainstem without and with contrast Magnetic resonance imaging (MRI) of the cervical spine without and with contrast HISTORY: Multiple sclerosis. TECHNIQUE: Multiplanar multi-weighted MRI of the brain, brainstem, and cervical spine was performed without and with intravenous contrast using the multiple sclerosis protocol. Scanner: [facility] Field Strength: 3 T Contrast: Dotarem Contrast [...] Holes: 5-10 Enhancing Brain Lesions: None T2/FLAIR Juliaetta of Disease: Severe, more than 30 typical [...] contrast using the multiple sclerosis protocol. Scanner: [facility] Field Strength: 3 T Contrast: Dotarem Contrast [...] Holes: 5-10 Enhancing Brain Lesions: None T2/FLAIR Juliaetta of Disease: Severe, more than 30 typical [...] sclerosis documented in this encounter Care Teams Crime Lab Analyst Relationship Specialty Start Date End Date Josette Physician PCP - General 08/02/19 04/23/24 Unknown, Notinfile PCP - General 04/24/24 04/18/25 Luís Butler DO [address] [address] PCP - General Family Medicine 04/19/25 Josette Physician 04/24/24 documented as of this encounter
--- OUTSIDE RECORDS SUMMARY | 2025-05-01 13:50 | XMS_ITS | Clinical Summary ---
Author Organization [facility] Address [address] [place] [address] Care Team Providers Care Toolmaker Helper Name Role Phone No, Physician Unavailable Luís Butler DO Primary Care Provider [phone] Allergies Active Allergy Reactions Criticality Noted Date [...] (04/04/2020): Added automatically from request for surgery [id number] Other fatigue 01/03/2020 Muscle spasm of left lower extremity 01/03/2020 Paresthesias 01/03/2020 Mild intermittent asthma without complication Multiple sclerosis 12/02/2013 Overview (10/23/2016): Multiple sclerosis, relapsing-remitting Encounters Date Type Department Care Team Description 04/19/2025 4:15 PM CDT Lab [facility] ([facility]) [address] [place] [address] Multiple sclerosis; Immunosuppression due to drug therapy; High risk medication use; Medication monitoring encounter; Abnormal MRI; Other fatigue; Dysesthesia of multiple sites 04/19/2025 2:30 PM CDT Office Visit [facility] Multiple Sclerosis [facility] [address]th [place] [address] Carol Hendricks, RECYCLE DRIVER Multiple sclerosis (Primary Dx); Immunosuppression due to drug therapy; High risk medication use; Medication monitoring encounter; Abnormal MRI; Other fatigue; Dysesthesia of multiple sites 04/19/2025 Results Follow-Up [facility] Multiple Sclerosis [address] [facility] 7th [place] [address] Carol Hendricks, RECYCLE DRIVER Immune competence 04/12/2025 7:30 PM CDT - 04/13/2025 1:58 AM CDT Emergency [facility] Emergency Department 1 [facility] [place] [address] Sanya Ortez MD PhD Left leg pain [...] on file 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 Gender Identity Not on file Sexual Orientation [...] CD3 Absolute 1,668 661 - 1,963 cells/mcL [facility] CD4 pct 78(H) 31 - 64 % [facility] CD4 Absolute 1,474(H) 365 - 1,294 cells/mcL [facility] CD8 pct 14 12 - 40 % [facility] CD8 Absolute 273 187 - 781 cells/mcL [facility] CD19 pct 0(L) 6 - 25 % [facility] CD19 Absolute <25(L) 86 - 488 cells/mcL [facility] Comment:Verified [id number] pct 9 5 - 25 % [facility] [id number] Absolute 154 76 - 467 cells/mcL [facility] CD4/CD8 ratio 5.6 [facility] Blood 04/19/2025 3:25 PM CDT 04/19/2025 4:14 PM CDT Carol Hendricks RECYCLE DRIVER LAB BLOOD ORDERABLES Final Res ult Performing Organization Address [facility] Co de Phone Number [facility] [place] [address] * IgA (04/19/2025 3:25 PM CDT) Immunoglobulin A 194 70 - 400 mg/dL Blood 04/19/2025 3:25 PM CDT 04/19/2025 4:14 PM CDT Carol Hendricks RECYCLE DRIVER LAB BLOOD ORDERABLES Final Res ult Performing Organization Address [facility] Co de Phone Number [facility] [place] [address] * IgM (04/19/2025 3:25 PM CDT) Immunoglobulin M 45 40 - 230 mg/dL Blood 04/19/2025 3:25 PM CDT 04/19/2025 4:14 PM CDT Carol Hendricks RECYCLE DRIVER LAB BLOOD ORDERABLES Final Res ult Performing Organization Address City/[facility]/ZIP Co de Phone Number [facility] [place] [address] * IgG (04/19/2025 3:25 PM CDT) Pathologist [facility] Immunoglobulin G 734 700 - 1,600 mg/dL Blood 04/19/2025 3:25 PM CDT 04/19/2025 4:14 PM CDT Carol Hendricks RECYCLE DRIVER LAB BLOOD ORDERABLES Final Res ult Performing Organization Address [facility] Co de Phone Number [facility] [place] [address] * Troponin I high-sensitivity 4-hour (04/12/2025 8:37 PM CDT) [facility] Trop I hs <4 <=17 ng/L Comment: Interpretive Data For further hscTnI resources including the diagnostic algorithm and an aid in interpretation, copy and paste this link: [email or web address] Current Interpretive Data last revised 2020. Trop I hs delta 0 ng/L [facility] Trop I hs interp Insignificant [facility] Blood 04/12/2025 8:37 PM CDT 04/12/2025 8:50 PM CDT Rahul Barroso MD LAB BLOOD ORDERABLES Lina l Result Performing Organization Address [facility] de Phone Number [facility] [place] [address] * aPTT (04/12/2025 8:37 PM CDT) Pathologist [facility] aPTT 31 26 - 38 sec Comment: Interpretive Data Heparin therapeutic range: 66.0 - 100.0 seconds. Range based on correlation with therapeutic heparin activity range of 0.3 - 0.7 Units/mL. Current interpretive data was last revised on 2023. Blood 04/12/2025 8:37 PM CDT 04/12/2025 8:53 PM CDT Jackie Mondragon MD LAB BLOOD ORDERABLES Fin al Result Performing Organization Address [facility] de Phone Number [facility] [place] [address] * Protime-INR (04/12/2025 8:37 PM CDT) PT 13.5 10.2 - 13.5 sec INR 1.20 0.90 - 1.20 [facility] Comment: Interpretive data Oral anticoagulant therapeutic ranges: Venous thromboembolism prophylaxis or treatment: 2.0-3.0 CARDIOLOGY Standard range: 2.0-3.0 High-intensity range: 2.5-3.5 Refer to indication-specific guidelines for appropriate target ranges for prosthetic heart valve replacement. Current interpretive data was last revised on 2019. Blood 04/12/2025 8:37 PM CDT 04/12/2025 8:53 PM CDT Jackie Mondragon MD LAB BLOOD ORDERABLES Fin al Result Performing Organization Address [facility] de Phone Number [facility] [place] [address] * Troponin I high-sensitivity series (baseline, 2hr, [...] ORDERABLE S Final Result Performing Organization Address [facility] de Phone Number [facility] Department [place] [address] * eGFR (04/12/2025 4:16 PM CDT) Pathologist [facility] eGFR >90 >=60 mL/min/1. 73 m2 Comment: [...] ORDERABLE S Final Result SAMMY BLEVINS [facility] Department [place] [address] * (ABNORMAL) Differential, auto (04/12/2025 4:16 PM CDT) Pathologist [facility] Neutrophil abs 6.82(H) 1.50 - 6.50 K/cumm Imm gran abs 0.03 0.00 - 0.10 K/cumm [facility] Lymphocyte abs 2.27 0.80 - 3.30 K/cumm [facility] Monocyte abs 0.89(H) 0.20 - 0.80 K/cumm [facility] Eosinophil abs 0.16 0.00 - 0.50 K/cumm [facility] Basophil abs 0.06 0.00 - 0.10 K/cumm [facility] Neutrophil pct 66.6 % [facility] Comment: Interpretive Data Percent cell count reference ranges are not reported, since discordance with absolute values may lead to misinterpretation of CBC data. Current Interpretive Data was last revised on 2017. Imm gran pct 0.3 % [facility] Comment: Interpretive Data Percent cell count reference ranges are not reported, since discordance with absolute values may lead to misinterpretation of CBC data. Current Interpretive Data was last revised on 2017. Lymphocyte pct 22.2 % [facility] Comment: Interpretive Data Percent cell count reference ranges are not reported, since discordance with absolute values may lead to misinterpretation of CBC data. Current Interpretive Data was last revised on 2017. Monocyte pct 8.7 % [facility] Comment: Interpretive Data Percent cell count reference ranges are not reported, since discordance with absolute values may lead to misinterpretation of CBC data. Current Interpretive Data was last revised on 2017. Eosinophil pct 1.6 % [facility] Comment: Interpretive Data Percent cell count reference ranges are not reported, since discordance with absolute values may lead to misinterpretation of CBC data. Current Interpretive Data was last revised on 2017. Basophil pct 0.6 % [facility] Comment: Interpretive Data Percent cell count reference ranges are not reported, since discordance with absolute values may lead to misinterpretation of CBC data. Current Interpretive Data was last revised on 2017. Blood 04/12/2025 4:16 PM CDT 04/12/2025 4:55 PM CDT us Sanya Ortez MD PhD LAB BLOOD ORDERABLE S Final Result [facility] Department [place] [address] * (ABNORMAL) CBC with auto differential (04/12/2025 4:16 PM CDT) WBC 10.23(H) 3.80 - 9.90 K/cumm Hgb 12.5 11.9 - 15.5 g/dL [facility] Hct 39.5 35.6 - 45.5 % [facility] Plt 362 150 - 400 K/cumm [facility] MPV 9.8 9.1 - 12.3 fL [facility] RBC 3.97 3.90 - 5.20 M/cumm [facility] MCV 99.5(H) 81.3 - 96.4 fL [facility] MCH 31.5 27.1 - 33.3 pg [facility] MCHC 31.6(L) 32.3 - 35.7 g/dL [facility] RDW CV 13.0 11.1 - 14.9 % [facility] RDW SD 47.4 35.7 - 48.1 fL [facility] NRBC abs 0.00 0.00 - 0.01 K/cumm [facility] Blood 04/12/2025 4:16 PM CDT 04/12/2025 4:55 PM CDT us Sanya Ortez MD PhD LAB BLOOD ORDERABLE S Final Result [facility] Department [place] [address] * (ABNORMAL) D-dimer, quantitative (04/12/2025 4:16 PM [...] PhD LAB BLOOD ORDERABLE S Final Result [facility] Department [place] [address] * Comprehensive metabolic panel (04/12/2025 4:16 PM CDT) Sodium 141 135 - 145 mmol/L Potassium, pl 4.5 3.3 - 4.9 mmol/L [facility] Chloride 108 97 - 110 mmol/L [facility] CO2 23 22 - 32 mmol/L [facility] Anion gap 10 2 - 15 mmol/L [facility] BUN 8 6 - 25 mg/dL [facility] Creatinine 0.72 0.60 - 1.10 mg/dL [facility] Glucose 85 70 - 199 mg/dL [facility] Comment: Interpretive Data Fasting glucose >/= [...] Calcium 8.7 8.5 - 10.3 mg/dL [facility] Bilirubin, total 0.2 0.1 - 1.2 mg/dL [facility] Protein, pl 6.7 6.5 - 8.5 g/dL [facility] Albumin 3.6 3.5 - 5.0 g/dL [facility] Alk phos 68 40 - 130 Units/L [facility] ALT 26 7 - 45 Units/L [facility] AST 25 10 - 45 Units/L [facility] Blood 04/12/2025 4:16 PM CDT 04/12/2025 4:55 PM CDT us Sanya Ortez MD PhD LAB BLOOD ORDERABLE S Final Result Performing Organization Address [facility] Co de Phone Number [facility] Department [place] [address] * Hepatitis panel, acute (01/03/2020 9:00 AM CDT) Hep A IgM Nonreactive Nonreactive [facility] Comment: Interpretive Data: If Hep A IgM Ab is reported as Equivocal, a new sample should be drawn in two weeks for testing. Current interpretive data was last revised on 19. Hep B core IgM Nonreactive Nonreactive [facility] Comment: Interpretive Data If HepB Core IgM Ab is reported as Equivocal, a new sample should be drawn in two weeks for testing. Current interpretive data was last revised on 19. Hep C Ab Nonreactive Nonreactive [facility] Comment:Antibodies to HCV no t detected. Does NOT exclude the possibility of recent exposure to HCV. HepBsAg Nonreactive Nonreactive [facility] Blood specimen (specimen) 01/03/2020 9:00 AM CDT 01/03/2020 10:39 AM CDT us Dominik Loza MD LAB MICROBIOLOGY - GENERAL ORDERABLES Edited Result - Final Performing Organization Address [facility] Co de Phone Number [facility] Department [place] [address] from Last 3 Months or Most Recently Relevant to Health Maintenance Insurance CHE[employer] ACCESS CHOICE Member Subscriber Plan / Payer (Ef fective 2016-Present) Name:Bryce Wong Relation to Subscriber:Self Name:DamirsaschaMatiasBryce R Payer ID:[id number] ([employer]) Type:[employer] Address: [address] CHOICE PLUS [employer] OOS BIMA ACCESS OOS Care Teams Toolmaker Helper Relationship Specialty Start Date End Date Luís Butler DO [address] [facility] [address] [place] [address] PCP - General Family Medicine 04/19/25 No, Physician 04/24/24
--- OUTSIDE RECORDS SUMMARY | 2025-05-01 13:50 | XMS_ITS | Encounter Summary ---
Author Organization [facility] Address [address] [place] [address] Care Team Providers Care Gin Clerk Name Role Phone Joe Reza MD Primary Care Provider [phone] Encounter Details Date Type Department Care Team (Late st Contact Info) Description 03/19/2020 Lab Requisition [facility] DermPath Lab [address] [facility] [address] [place] [address] Herminia Graham MD [address] [facility] [address] [place] [address] Social History Tobacco Use Types Packs/Day Years Used Date Smoking Tobacco: Never Assessed Comments Unknown Sex and Gender Information Value Date Recorded Sex Assigned at Not on file 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 Gender Identity Not on file Sexual Orientation Not on file documented as of this encounter Plan of Treatment Not on file documented as of this encounter Procedures Procedure Name Priority Date/Time Associated Diagnosis Comments DERMATOPATHOLOGY Routine 03/18/2020 12:0 0 AM CDT documented in this encounter Results * DERMATOPATHOLOGY (03/18/2020 12:00 AM CDT) Case Report Dermatopathology Report Case: [id number] Authorizing Provider: Herminia Graham MD Collected: 03/18/2020 12:00 AM Ordering Location: [facility] Care DermPath Lab Received: 03/19/2020 03:02 [...] characteristic determined by the Dermatopathology Laboratory at [facility], directed by Dr. Angelica Ann. These tests need not be, and therefore are not, approved by the [place] Food and Drug Administration. The tests are used for clinical purposes. Billing Codes Specimen Charges Stain Charges 70219 1 0 3:02 PM CDT DERMATOPATHOLOGY LABORATORY Embedded Images 0 3:02 PM CDT DERMATOPATHOLOGY LABORATORY Pathology/Cytolog y TISSUE SPECIMEN FROM SKIN / Unknown 03/18/2020 03/19/2020 3:02 PM CDT us Herminia Graham MD LAB - PATHOLOGY/CYTOLOGY ORD ERABLES Final Result DERMATOPATHOLOGY LABORATORY [facility] - Department of Dermatology [facility] Medicine [address] [place] [address], [address] [place] [address], [facility] [phone] documented in this encounter Visit Diagnoses Not on filedocumented in this encounter Care Teams Gin Clerk Relationship Specialty Start Date End Date Joe Reza MD [address] [place] [address] PCP - General 02/13/11 documented as of this encounter
--- OUTSIDE RECORDS SUMMARY | 2025-05-01 13:50 | XMS_ITS | Encounter Summary ---
Author Organization [facility] Address [address] [place] [address] Phone Care Team Providers Care Safety Lead Name Role Phone No, Physician Primary Care Provider [phone] Unknown, Notinfile Primary Care Provider Unavail able No, Physician Unavailable Luís Butler DO Primary Care Provider [phone] Encounter Details Date Type Department Care Team (Latest Contact Info) Description 01/05/2022 Research Med Pick-Up/CTRU Grinder Operator Surface Tool [facility] Multiple Sclerosis [address] [place] [phone] Dominik Loza MD [address] [place] [address] MS (multiple sclerosis) (HCC) (Primary Dx) Social History Tobacco Use Types Packs/Day Years Used Date Smoking Tobacco: Never Smokeless Tobacco: Never Alcohol Use Standard Drinks/Week Comments Yes 2 (1 standard drink = 0.6 oz pur e alcohol) Comments No Sex and Gender Information Value Date Recorded Sex Assigned at Not on file 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 Gender Identity Not on file Sexual Orientation Lesbian 04/02/2020 8: 04 AM CDT documented as of this encounter Plan of Treatment Not on file documented as of this encounter Visit Diagnoses Diagnosis MS (multiple sclerosis)- Primary Multiple sclerosis documented in this encounter Orders Medications Ordered That Osvaldo ht Not Have Been Administered Count Last Ordered Date First Ordered Date [facility] (2019-06-268/[id number] ) ocrelizumab 920 mg + rHuPH20 23,000 units subcutaneous solution 23 mL 1 12/31/2021 documented in this encounter Care Teams Safety Lead Relationship Specialty Start Date End Date No, Physician PCP - General 08/02/19 04/23/24 Unknown, Notinfile PCP - General 04/24/24 04/18/25 Luís Butler DO [address] [facility] [address] [place] [address] PCP - General Family Medicine 04/19/25 No, Physician 04/24/24 documented as of this encounter
== END 2025-05-01 15:39 | disposition home or self-care (01) ==
PROVIDERS: Emergency Provider Physician Assistant
DX: S20.211A Contusion of right front wall of thorax, initial encounter (principal); N28.1 Cyst of kidney, acquired; G35.D Multiple sclerosis, unspecified; M47.812 Spondylosis without myelopathy or radiculopathy, cervical region; I77.819 Aortic ectasia, unspecified site; R94.31 Abnormal electrocardiogram [ECG] [EKG]; V44.5XXA Car driver injured in collision with heavy transport vehicle or bus in traffic accident, initial encounter
CPT/HCPCS: 36415; 70450; 71260; 72125; 74177; 80053; 81025; 84484; 85025; 93005; 96374; 96375; 99284; J2270; J2405; Q9967